=== PATIENT | female | born 2000 | race Asian ===

== ENCOUNTER 2025-01-15 08:14 | Emergency (ER) | payer OTHER, MEDICAID ==
[~2025-01-15] VITALS: Ht 170.2 cm; Wt 58.1 kg
[2025-01-15 08:25] VITALS: TEMP 36.8; O2SAT 97
[2025-01-15] MEDS: FAMOTIDINE 20MG TABLET PO ONE (09:04)
[2025-01-15 09:05] LABS: HEMATOCRIT. 40.7 % (36.0-48.0); HEMOGLOBIN. 13.8 g/dL (12.0-16.0); MEAN PLATELET VOLUME 7.9 fl (7.4-10.4); PLATELET 221 x1000/uL (130-400); RED BLOOD CELL COUNT 4.61 mill/uL (4.2-5.4); RED CELL DISTRIBUTION WIDTH 11.9 % (11.6-14.6)
[2025-01-15] MEDS: ONDANSETRON 4MG ODT PO ONE (09:05)
[2025-01-15 09:23] LABS: CLARITY URINE CLEAR (CLEAR); COLOR URINE YELLOW (YELLOW); GLUCOSE URINE NEGATIVE (NEGATIVE); KETONES URINE NEGATIVE (NEGATIVE); LEUKOCYTE ESTERASE URINE NEGATIVE (NEGATIVE); NITRITE URINE NEGATIVE (NEGATIVE); OCCULT BLOOD URINE 1+ (NEGATIVE); PH URINE 6.5 (4.5-8.0); PROTEIN URINE NEGATIVE (NEGATIVE); SPECIFIC GRAVITY URINE 1.010 (1.005-1.030); UROBILINOGEN URINE 1.0 E.U./dL (0.2-1.0)
[2025-01-15 09:26] LABS: CREATININE 0.6 mg/dL (0.6-1.0)
[2025-01-15 09:27] LABS: UREA NITROGEN BLOOD 5 mg/dL (9-23)
[2025-01-15 09:28] LABS: ASPARTATE AMINOTRANSFERASE 13 IU/L (<34)
[2025-01-15 09:29] LABS: BILIRUBIN DIRECT 0.2 mg/dL (<=3.0); BILIRUBIN TOTAL 0.6 mg/dL (0.1-1.0); PROTEIN TOTAL 7.2 g/dL (6.0-8.3)
[2025-01-15 09:49] LABS: SQUAMOUS EPITHELIAL CELL URINE 2+ /lpf (RARE/1+)
[2025-01-15 09:50] LABS: WBC URINE 0-2 /hpf (0-2)
[2025-01-15 09:51] LABS: BACTERIA URINE 1+; RBC URINE 0-2 /hpf (0-2)
[2025-01-15 09:53] LABS: FINE GRANULAR CASTS URINE 0-5 /lpf
[2025-01-15] MEDS ORDERED: LOPE2CAP MT (10:22)
[2025-01-15] MEDS ORDERED: PANT40TA51 MT (10:22)
[2025-01-15] MEDS ORDERED: LACT1CAP78 MT (10:22)
[2025-01-15 10:34] VITALS: BP 108/71; PULSE 94; RESP 18; O2SAT 99
[2025-01-15 14:05] LABS: BAND% 4.0 % (1.0-6.0); EOSINOPHILS % MANUAL 2.0 % (0.0-5.0); LYMPHOCYTES % MANUAL 38.0 % (20.0-60.0); MONOCYTES % MANUAL 7.0 % (2.0-8.0); NEUTROPHILS % MANUAL 49.0 % (45.0-75.0); PLATELET ESTIMATE NORMAL
== END 2025-01-15 10:35 | disposition home or self-care (01) ==
LOC: ER 08:14
DX: K52.9 Noninfective gastroenteritis and colitis, unspecified (principal); Z79.899 Other long term (current) drug therapy; Z91.018 Allergy to other foods; Z20.822 Contact with and (suspected) exposure to COVID-19
CPT/HCPCS: 99283; 87426; 82270; 80076; 80048; 81003; 81025; 83690; 85025; 36415; Q0162